=== PATIENT | male | born 1990 | race Caucasian/White ===

== ENCOUNTER 2023-07-31 11:33 | Emergency (ER) | payer OTHER ==
[2023-07-31 12:13] LABS: STREP A BY PCR NOT DETECTED (NOT DETECT)
[2023-07-31 12:26] LABS: CORONAVIRUS COVID-19 NAA NEGATIVE (NEGATIVE); INFLUENZA A NAA NEGATIVE (NEGATIVE); INFLUENZA B NAA NEGATIVE (NEGATIVE); RESPIRATORY SYNCYTIAL VIR NAA NEGATIVE (NEGATIVE)
[2023-07-31 13:09] LABS: BASOPHILS ABSOLUTE AUTO 0.03 K/uL (0.00-0.10); BASOPHILS PERCENT AUTO 0.2 % (0.1-1.3); EOSINOPHILS ABSOLUTE AUTO 0.17 K/uL (0.00-0.40); EOSINOPHILS PERCENT AUTO 1.2 % (0.0-5.4); HEMATOCRIT 44.4 % (38.4-49.7); HEMOGLOBIN 15.6 g/dL (12.9-16.9); IMMATURE GRAN ABSOLUTE AUTO 0.05 K/uL (0.00-0.23); IMMATURE GRAN PERCENT AUTO 0.4 % (0.0-0.7); LYMPHOCYTES ABSOLUTE AUTO 2.42 K/uL (0.8-3.3); LYMPHOCYTES PERCENT AUTO 17.6 % (11.4-47.7); MEAN CORPUSCULAR HEMOGLOBIN 30.5 pg (31.6-35.5); MEAN CORPUSCULAR HGB CONC 35.1 g/dL (31.6-35.5); MEAN CORPUSCULAR VOLUME 86.7 fL (81.4-99.0); MONOCYTES ABSOLUTE AUTO 1.14 K/uL (0.20-0.90); MONOCYTES PERCENT AUTO 8.3 % (3.3-12.6); NEUTROPHILS ABSOLUTE AUTO 9.96 K/uL (1.0-7.6); NEUTROPHILS PERCENT AUTO 72.3 % (40.0-78.1); PLATELET COUNT,PLT 240 K/uL (130-375); RED BLOOD CELL COUNT 5.12 M/uL (4.14-5.76); WHITE BLOOD CELL COUNT,WBC 13.8 K/uL (3.2-11.0)
[2023-07-31 13:23] LABS: CALCIUM 8.3 mg/dL (8.5-10.1); CREATININE 0.9 mg/dL (0.8-1.3); EST CRCL DRUG DOSING (CG) 128.14 mL/min; POTASSIUM,K 3.7 mmol/L (3.6-5.2)
[2023-07-31 13:27] LABS: ANION GAP 10.7 mmol/L (5.0-14.0)
[2023-07-31] MEDS ORDERED: Sodium Chloride 0.9% 10 ML Syringe FLUSH ONE (14:32)
[2023-07-31] MEDS ORDERED: Iopamidol 612 MG/ML 100 ML Bottle IV ONE (14:32)
[2023-07-31] MEDS ORDERED: Sodium Chloride 0.9% 100 ML IV ONE (14:32)
== END 2023-07-31 16:21 | disposition home or self-care (01) ==
LOC: JP.ED 11:33
DX: J02.9 Acute pharyngitis, unspecified (principal); Z86.16 Personal history of COVID-19; Z88.0 Allergy status to penicillin; Z20.822 Contact with and (suspected) exposure to COVID-19
CPT/HCPCS: 0241U; 36415; 70491; 80048; 85025; 87651; 99284; J3490; Q9967

== ENCOUNTER 2025-05-27 21:09 | Emergency (ER) | payer OTHER ==
[2025-05-27 21:46] LABS: BASOPHILS ABSOLUTE AUTO 0.05 K/uL (0.00-0.10); BASOPHILS PERCENT AUTO 0.5 % (0.1-1.3); EOSINOPHILS ABSOLUTE AUTO 0.19 K/uL (0.00-0.40); EOSINOPHILS PERCENT AUTO 1.9 % (0.0-5.4); IMMATURE GRAN ABSOLUTE AUTO 0.03 K/uL (0.00-0.23); IMMATURE GRAN PERCENT AUTO 0.3 % (0.0-0.7); LYMPHOCYTES ABSOLUTE AUTO 2.90 K/uL (0.8-3.3); LYMPHOCYTES PERCENT AUTO 28.6 % (11.4-47.7); MONOCYTES ABSOLUTE AUTO 0.89 K/uL (0.20-0.90); MONOCYTES PERCENT AUTO 8.8 % (3.3-12.6); NEUTROPHILS ABSOLUTE AUTO 6.08 K/uL (1.0-7.6); NEUTROPHILS PERCENT AUTO 59.9 % (40.0-78.1); PLATELET COUNT,PLT 282 K/uL (130-375); RED BLOOD CELL COUNT 5.16 M/uL (4.14-5.76); WHITE BLOOD CELL COUNT,WBC 10.1 K/uL (3.2-11.0)
[2025-05-27 22:09] LABS: A/G RATIO 1.1 (1.2-2.2); ALANINE AMINOTRANSFERASE,ALT 58 U/L (12-78); ASPARTATE AMNIOTRANSFERASE,AST 29 U/L (15-37); BILIRUBIN TOTAL 0.6 mg/dL (0.2-1.0); BLOOD UREA NITROGEN,BUN 22 mg/dL (7-18); CARBON DIOXIDE,CO2 24 mmol/L (21-32); CHLORIDE,CL 104 mmol/L (100-108); CREATININE 0.9 mg/dL (0.8-1.3); EST CRCL DRUG DOSING (CG) 125.74 mL/min; ESTIMATED GFR 114 mL/min (>60); GLUCOSE RANDOM 132 mg/dL (74-106); POTASSIUM,K 3.4 mmol/L (3.6-5.2); PROTEIN TOTAL,TP 7.5 g/dL (6.4-8.2); SODIUM,NA 138 mmol/L (140-148); TROPONIN I HIGH SENSITIVITY 5.6 pg/mL (<=60.3)
== END 2025-05-28 02:39 | disposition home or self-care (01) ==
LOC: JP.ED 21:09
DX: R07.9 Chest pain, unspecified (principal); Z88.0 Allergy status to penicillin; Z86.16 Personal history of COVID-19
CPT/HCPCS: 36415; 71045; 71045-26; 80053; 84484; 85025; 85379; 85651; 86140; 93005; 99285